=== PATIENT | female | born 2000 | race Caucasian/White ===

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

== ENCOUNTER 2018-09-09 23:58 | Emergency (ER) | payer OTHER ==
--- NOTE | 2018-09-10 01:36 | ER Document Report ---
Addendum entered and electronically signed by POLI STEVENS LCSWA 09/10/18 09:50: Discharge - Discharge Clinical Impression: Suicidal ideation, Bereavement Alcohol intoxication Qualifiers: Complication of substance-induced condition: uncomplicated Qualified Code(s): F10.920 - Alcohol use, unspecified with intoxication, uncomplicated Depression Qualifiers: Depression Type: unspecified Qualified Code(s): F32.9 - Major depressive disorder, single episode, unspecified Condition: Stable Disposition: HOME, SELF-CARE Additional Instructions: You have been evaluated by both medical and behavioral health teams and been deemed appropriate for discharge. You are recommended to follow-up with outpatient mental health services for both grief counseling and DBT; you have been provided a local resource list of area providers including mobile crisis contact information. You have been provided prescriptions for Zyprexa 2.5 mg twice daily, Prozac 20 mg daily and BuSpar 5 mg twice daily; please take as directed. DEPRESSION: Your evaluation reveals that you have mental depression. While symptoms may be vague, they often include disturbance of sleep, fatigue, loss of appetite, and general loss of interest in life. While depression may be a side effect of drugs, or a reaction to a major change in your life, many cases have no known cause. If depression is acute, and related to a major loss in your life, you can expect it to clear completely with time. If you have been depressed a long time, are prone to repeated bouts of depression or low mood, or have been thinking of suicide, get help. Depression can be treated with anti-depressant medication and counselling. Long-term depression will often take a few weeks to clear, even with appropriate medication. Follow-up care is important. FOLLOW-UP CARE: If you have been referred to a physician for follow-up care, call the physicians office for an appointment as you were instructed or within the next two days.~ If you experience worsening or a significant change in your symptoms, notify the physician immediately or return to the Emergency Department at any time for re-evaluation. Referrals: [facility] [Outside] - Follow up as needed Original Note: ED General - General Chief Complaint: ETOH Abuse Stated Complaint: ETOH Time Seen by Provider: 09/10/18 00:04 Notes: Patient is a 18-year-old female with past medical history of bipolar disorder, prior suicide attempts, presents with concerns of increasing depression, suicidal ideation, admits to drinking heavily tonight and then having what she describes as being a possible pseudoseizure of which she has a history. Patient states that she is been lying in bed for most of the past 3 weeks after having a D&C done due to miscarriage of 10-week twins. 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 Patient states that she has had no energy or effort, has no desire to get up out of bed. She states that her l ast suicide attempt was when she was 12 years of age and did require 3-day hospitalization in ICU. She currently denies any acute medical complaints other than being intoxicated. Patient states that she has feel increasingly suicidal, feels isolated, does not typically leave the house or complete many activities of daily living secondary to her depression. TRAVEL OUTSIDE OF THE [place] IN LAST 30 DAYS: No - Related Data Allergies/Adverse Reactions: codeine Allergy (Verified 09/10/18 00:07) escitalopram [From Lexapro] Allergy (Verified 09/10/18 00:07) Past Medical History - General Information source: Patient - Social History Smoking Status: Current Some Day Smoker Frequency of alcohol use: Occasional Drug Abuse: None Lives with: Spouse/Significant other Family History: Reviewed & Not Pertinent Patient has suicidal ideation: No Patient has homicidal ideation: No Renal/ Medical History: Denies: Hx Peritoneal Dialysis Psychiatric Medical History: Reports: Hx Depression Past Surgical History: Reports: Hx Gynecologic Surgery - "double D&C", Hx Oral Surgery Review of Systems - Review of Systems Notes: Constitutional: Negative for fever. HENT: Negative for sore throat. Eyes: Negative for visual changes. Cardiovascular: Negative for chest pain. Respiratory: Negative for shortness of breath. Gastrointestinal: Negative for abdominal pain, vomiting or diarrhea. Genitourinary: Negative for dysuria. Musculoskeletal: Negative for back pain. Skin: Negative for rash. Neurological: Negative for headaches, weakness or numbness. 10 point ROS negative except as marked above and in HPI. Physical Exam - Vital signs Interpretation: Normal Notes: PHYSICAL EXAMINATION: GENERAL: Quite anxious, moderately tearful HEAD: Atraumatic, normocephalic. EYES: Pupils equal round and reactive to light, extraocular movements intact, sclera anicteric, conjunctiva are normal. ENT: nares patent, oropharynx clear without exudates. Moist mucous membranes. NECK: Normal range of motion, supple without lymphadenopathy LUNGS: Breath sounds clear to auscultation bilaterally and equal. No wheezes rales or rhonchi. HEART: Regular rate and rhythm without murmurs ABDOMEN: Soft, nontender, normoactive bowel sounds. No guarding, no rebound. No masses appreciated. EXTREMITIES: Normal range of motion, no pitting or edema. No cyanosis. NEUROLOGICAL: No focal neurological deficits. Moves all extremities spontaneously and on command. PSYCH: Anxious, tearful, mildly intoxicated SKIN: Warm, Dry, normal turgor, no rashes or lesions noted. Course - Re-evaluation Re-evalutation: 09/10/18 01:34 Patient presents after drinking tonight, is becoming increasingly sober during my assessment but does begin to open to me and explained that she has been feeling increasingly suicidal after having a D&C with loss of twins at 10 weeks. Has a history of depression and anxiety, was taken off of her medications during her , was recently restarted on Zoloft but reports this is not helping her. Patient voices self-injurious behaviors, states that she has been lying in bed all day every day for several weeks even on . The patient states that she feels that she has failed in life. She is extremely concerning her presentation for possible elevated suicide risk. She states that she is asking for help and feels like she would not be safe at home. Will undergo psychiatric screening labs. Medical screening exam unremarkable. She will be transitioned to a psychiatric room. - Laboratory Result Diagrams: 09/10/18 01:40 09/10/18 01:40 Laboratory results interpreted by me: 09/10/18 09/10/18 00:35 01:40 Seg Neutrophils % 83.7 H Lymphocytes % 12.0 L Urine Blood MODERATE H - EKG Interpretation by Me Additional EKG results interpreted by me: 09/10/18 02:51 Sinus rhythm, rate 89. No ST elevations or depressions. QTC is 463. Discharge - Discharge Clinical Impression: Suicidal ideation Alcohol intoxication Qualifiers: Complication of substance-induced condition: uncomplicated Qualified Code(s): F10.920 - Alcohol use, unspecified with intoxication, uncomplicated Depression Qualifiers: Depression Type: unspecified Qualified Code(s): F32.9 - Major depressive disorder, single episode, unspecified Condition: Fair
[2018-09-10 01:50] LABS: ABSOLUTE MONOCYTES (AUTO) 0.3 10^3/uL (0.1-1.4); ABSOLUTE NEUT (AUTO) 7.3 10^3/uL (1.7-8.2); BASOPHILS % (AUTO) 0.2 % (0-2); EOSINOPHILS % (AUTO) 0.4 % (0-6); HEMOGLOBIN 13.3 g/dL (12.0-15.5); MEAN CORPUSCULAR HEMOGLOBIN 28.9 pg (27.0-33.4); MEAN CORPUSCULAR HGB CONC 34.1 g/dL (32.0-36.0); MEAN CORPUSCULAR VOLUME 85 fl (80-97); MONOCYTES % (AUTO) 3.7 % (3-13); PLATELET COUNT 256 10^3/uL (150-450); RED BLOOD COUNT 4.61 10^6/uL (3.72-5.28); RED CELL DISTRIBUTION WIDTH 12.2 % (11.5-14.0); SEGMENTED NEUTROPHILS % (AUTO) 83.7 % (42-78); TOTAL CELLS COUNTED % (AUTO) 100 %; WHITE BLOOD COUNT 8.7 10^3/uL (4.0-10.5)
[2018-09-10 02:01] LABS: APPEARANCE,URINE CLEAR; BILIRUBIN,URINE NEGATIVE (NEGATIVE); COLOR,URINE YELLOW; GLUCOSE, URINE NEGATIVE (NEGATIVE); KETONES,URINE NEGATIVE (NEGATIVE); LEUKOCYTE ESTERASE,URINE NEGATIVE (NEGATIVE); NITRITE,URINE NEGATIVE (NEGATIVE); PROTEIN,URINE NEGATIVE (NEGATIVE); URINE SPECIFIC GRAVITY 1.016; UROBILINOGEN,URINE NEGATIVE mg/dL (<2.0)
[2018-09-10 03:13] LABS: ALANINE AMINOTRANSFERASE 22 U/L (9-52); ALBUMIN 4.8 g/dL (3.5-5.0); ALCOHOL 148 mg/dL (NONE DETECTED); ALKALINE PHOSPHATASE 59 U/L (38-126); ANION GAP 13 (5-19); ASPARTATE AMINO TRANSFERASE 20 U/L (14-36); BILIRUBIN,DIRECT 0.2 mg/dL (0.0-0.4); BILIRUBIN,TOTAL 0.4 mg/dL (0.2-1.3); BLOOD UREA NITROGEN 10 mg/dL (7-20); CALCIUM 9.8 mg/dL (8.4-10.2); CARBON DIOXIDE 25 mmol/L (22-30); CHLORIDE 107 mmol/L (98-107); GLUCOSE 103 mg/dL (75-110); POTASSIUM 3.8 mmol/L (3.6-5.0); SODIUM 145.1 mmol/L (137-145); TOTAL PROTEIN 7.9 g/dL (6.3-8.2)
[2018-09-10 03:16] LABS: ACETAMINOPHEN < 10 ug/mL (10-30); SALICYLATE < 1.0 mg/dL (2.0-20.0)
[2018-09-10] MEDS ORDERED: ACETAMINOPHEN 325 MG TABLET PO ONE (03:48)
[2018-09-10 05:20] LABS: URINE AMPHETAMINES SCREEN NEGATIVE; URINE BARBITURATES SCREEN NEGATIVE; URINE BENZODIAZEPINES SCREEN NEGATIVE; URINE COCAINE SCREEN NEGATIVE; URINE MARIJUANA (THC) SCREEN NEGATIVE; URINE METHADONE SCREEN NEGATIVE; URINE PHENCYCLIDINE SCREEN NEGATIVE
--- NOTE | 2018-09-10 09:28 | ER Document Report ---
Doctor's Note Notes: 09/10/18 09:51 Patient seen and evaluated by myself. She presents the emergency department intoxicated with complaints of suicidal ideations. Patient states that she had a D&C with loss of a twin at 10 weeks. She states that she has been feeling depressed ever since. She states that she has been laying in bed every day for several weeks. Labs obtained. Patient was medically cleared. No issues overnight per nursing. Vital signs stable. Patient states that she is feeling better in the room. She denies any current suicidal ideations. Patient significant other is at bedside. A plan was established with behavioral health. Patient will be discharged home on Zyprexa, Prozac, BuSpar. Appropriate foll ow-up has been arranged. Patient instructed that she needs to attend grief counseling. Patient significant other and herself feel comfortable with discharge home. 09/10/18 10:32
[2018-09-10 11:26] VITALS: BP 113/71
--- NOTE | 2018-09-10 12:46 | EKG REPORT ---
SEVERITY:- NORMAL ECG - SINUS RHYTHM : Confirmed by: Darlene Pratt MD 10-Sep-2018 12:44:50
== END 2018-09-10 11:25 | disposition home or self-care (01) ==
LOC: ER 23:58
DX: F10.920 Alcohol use, unspecified with intoxication, uncomplicated (principal); F32.9 Major depressive disorder, single episode, unspecified; R45.851 Suicidal ideations; F17.200 Nicotine dependence, unspecified, uncomplicated; Z63.4 Disappearance and death of family member; Z88.5 Allergy status to narcotic agent; Z88.8 Allergy status to other drugs, medicaments and biological substances
CPT/HCPCS: 36415; 80053; 80307; 81001; 84703; 85025; 93005; 93010; 99284

== ENCOUNTER 2019-05-29 17:10 | Emergency (ER) | payer SELFPAY ==
--- NOTE | 2019-05-29 17:24 | ER Document Report ---
ED Medical Screen (RME) - General Chief Complaint: Flank Pain Stated Complaint: RIGHT SIDE PAIN Time Seen by Provider: 05/29/19 17:18 Mode of Arrival: Wheelchair Information source: Patient Notes: Patient presents emergency department with complaints of severe lower abdominal pain while she was voiding 15 minutes ago. Patient is hysterically crying. Denies fever vomiting diarrhea. Reports it did not hurt before voiding. She is unsure if she is . I have greeted and performed a rapid initial assessment of this patient. A comprehensive ED assessment and evaluation of the patient, analysis of test results and completion of the medical decision making process will be conducted by additional ED providers. Dictation of this chart was performed using voice recognition software; therefore, there may be some unintended grammatical errors. TRAVEL OUTSIDE OF THE [place] IN LAST 30 DAYS: No - Related Data Allergies/Adverse Reactions: codeine Allergy (Verified 05/29/19 17:18) escitalopram [From Lexapro] Allergy (Verified 05/29/19 17:18) Past Medical History Renal/ Medical History: Denies: Hx Peritoneal Dialysis Psychiatric Medical History: Reports: Hx Depression Past Surgical History: Reports: Hx Gynecologic Surgery - "double D&C", Hx Oral Surgery Physical Exam - Vital signs Vitals: Temp Pulse Resp BP Pulse Ox 97.8 F 116 H 32 H 134/86 H 100 05/29/19 17:13 05/29/19 17:13 05/29/19 17:13 05/29/19 17:13 05/29/19 17:13 Course - Vital Signs Vital signs: Temp Pulse Resp BP Pulse Ox 97.8 F 116 H 32 H 134/86 H 100 05/29/19 17:13 05/29/19 17:13 05/29/19 17:13 05/29/19 17:13 05/29/19 17:13
[2019-05-29 18:01] LABS: ABSOLUTE BASOPHILS # (AUTO) 0.1 10^3/uL (0.0-0.2); ABSOLUTE EOSINOPHILS # (AUTO) 0.2 10^3/uL (0.0-0.6); ABSOLUTE LYMPHOCYTES (AUTO) 2.4 10^3/uL (0.5-4.7); ABSOLUTE MONOCYTES (AUTO) 0.9 10^3/uL (0.1-1.4); ABSOLUTE NEUT (AUTO) 8.5 10^3/uL (1.7-8.2); BASOPHILS % (AUTO) 0.5 % (0-2); EOSINOPHILS % (AUTO) 1.5 % (0-6); HEMATOCRIT 39.6 % (36.0-47.0); HEMOGLOBIN 13.5 g/dL (12.0-15.5); LYMPHOCYTES % (AUTO) 20.2 % (13-45); MEAN CORPUSCULAR HEMOGLOBIN 28.4 pg (27.0-33.4); MEAN CORPUSCULAR HGB CONC 34.1 g/dL (32.0-36.0); MEAN CORPUSCULAR VOLUME 83 fl (80-97); MONOCYTES % (AUTO) 7.4 % (3-13); PLATELET COUNT 342 10^3/uL (150-450); RED BLOOD COUNT 4.76 10^6/uL (3.72-5.28); RED CELL DISTRIBUTION WIDTH 13.7 % (11.5-14.0); SEGMENTED NEUTROPHILS % (AUTO) 70.4 % (42-78); TOTAL CELLS COUNTED % (AUTO) 100 %
[2019-05-29] MEDS ORDERED: PHENAZOPYRIDINE HCL 200 MG TABLET PO ONE (18:04)
[2019-05-29 18:17] LABS: ALBUMIN 4.7 g/dL (3.5-5.0); ALKALINE PHOSPHATASE 69 U/L (38-126); ANION GAP 13 (5-19); ASPARTATE AMINO TRANSFERASE 21 U/L (14-36); BILIRUBIN,DIRECT 0.1 mg/dL (0.0-0.4); BILIRUBIN,TOTAL 0.8 mg/dL (0.2-1.3); BLOOD UREA NITROGEN 11 mg/dL (7-20); CALCIUM 10.3 mg/dL (8.4-10.2); CARBON DIOXIDE 24 mmol/L (22-30); CHLORIDE 103 mmol/L (98-107); GLUCOSE 95 mg/dL (75-110); POTASSIUM 3.6 mmol/L (3.6-5.0); TOTAL PROTEIN 7.9 g/dL (6.3-8.2)
[2019-05-29 18:33] LABS: ALCOHOL < 10 mg/dL (NONE DETECTED)
[2019-05-29 18:51] LABS: APPEARANCE,URINE CLOUDY; BILIRUBIN,URINE NEGATIVE (NEGATIVE); COLOR,URINE YELLOW; GLUCOSE, URINE NEGATIVE (NEGATIVE); KETONES,URINE TRACE mg/dL (NEGATIVE); LEUKOCYTE ESTERASE,URINE NEGATIVE (NEGATIVE); NITRITE,URINE NEGATIVE (NEGATIVE); PROTEIN,URINE 30 mg/dL (NEGATIVE); URINE SPECIFIC GRAVITY 1.023
[2019-05-29] MEDS ORDERED: FENTANYL CITRATE INJ/PF 100 MCG/2 ML AMPUL IV ONE ×2 (20:03→21:47)
[2019-05-29] MEDS ORDERED: NORMAL SALINE 1000 ML 1,000 ML IV ONE ×2 (20:03→21:44)
[2019-05-29] MEDS ORDERED: ONDANSETRON HCL INJ/PF 4 MG/2 ML SDV IV ONE (20:03)
[2019-05-29] MEDS ORDERED: KETOROLAC TROMETHAMINE INJ/PF 30 MG/1 ML SDV IV ONE (20:04)
--- NOTE | 2019-05-29 20:08 | ER Document Report ---
ED GI/ - General Chief Complaint: Abdominal Pain Stated Complaint: RIGHT SIDE PAIN Time Seen by Provider: 05/29/19 17:18 Primary Care Provider: [facility] [Provider Group] - Follow up as needed Mode of Arrival: Wheelchair Information source: Patient Notes: Patient states that around 5 PM she was voiding and had a sudden onset of right lower pelvic pain. Patient states pain was severe but has lessened up since it originally started. Patient does report nausea. Patient denies any fever. Patient denies any vaginal bleeding or vaginal discharge. Patient denies any known history of ovarian cyst. TRAVEL OUTSIDE OF THE [place] IN LAST 30 DAYS: No - HPI Patient complains to provider of: Pelvic pain. No: , Vomiting Onset: This evening Timing/Duration: Sudden Quality of pain: Sharp Pain Level: 4 Location: Pelvis Vaginal bleeding (Compared to normal period): None Menstrual period history: denies: Sexual history: Active Associated symptoms: Nausea. denies: Dysuria, Fever, Urinary hesitancy, Urinary frequency, Urinary retention, Urinary urgency, Vaginal discharge, Vomiting Exacerbated by: Movement Relieved by: Denies - Related Data Allergies/Adverse Reactions: amoxicillin Allergy (Verified 05/30/19 18:52) codeine Allergy (Verified 05/29/19 17:18) escitalopram [From Lexapro] Allergy (Verified 05/29/19 17:18) Penicillins Allergy (Verified 05/30/19 18:52) Past Medical History - General Information source: Patient - Social History Smoking Status: Current Every Day Smoker Chew tobacco use (# tins/day): No Frequency of alcohol use: None Drug Abuse: None Occupation: None Lives with: Spouse/Significant other Family History: Reviewed & Not Pertinent Patient has suicidal ideation: No Patient has homicidal ideation: No Renal/ Medical History: Denies: Hx Peritoneal Dialysis Psychiatric Medical History: Reports: Hx Depression Past Surgical History: Reports: Hx Gynecologic Surgery - "double D&C", Hx Oral Surgery Review of Systems - Review of Systems Constitutional: No symptoms reported. denies: Fever, Recent illness EENT: No symptoms reported Cardiovascular: No symptoms reported Respiratory: No symptoms reported. denies: Cough Gastrointestinal: Abdominal pain, Nausea. denies: Vomiting Genitourinary: No symptoms reported. denies: Dysuria, Flank pain Female Genitourinary: No symptoms reported. denies: , Vaginal disch arge, Vaginal bleeding Musculoskeletal: No symptoms reported. denies: Back pain Skin: No symptoms reported Hematologic/Lymphatic: No symptoms reported Neurological/Psychological: No symptoms reported Physical Exam - Vital signs Vitals: Temp Pulse Resp BP Pulse Ox 97.8 F 116 H 32 H 134/86 H 100 05/29/19 17:13 05/29/19 17:13 05/29/19 17:13 05/29/19 17:13 05/29/19 17:13 - General General appearance: Appears well, Alert In distress: None - HEENT Head: Normocephalic, Atraumatic Eyes: Normal Conjunctiva: Normal Nasal: Normal Mouth/Lips: Normal Mucous membranes: Dry Pharynx: Normal Neck: Normal, Supple. No: Lymphadenopathy - Respiratory Respiratory status: No respiratory distress Chest status: Nontender Breath sounds: Normal. No: Rales, Rhonchi, Stridor, Wheezing Chest palpation: Normal - Cardiovascular Rhythm: Regular Heart sounds: S1 appreciated, S2 appreciated Murmur: No - Abdominal Inspection: Normal Distension: No distension Bowel sounds: Normal Tenderness: Tender - Right lower pelvic. No: McBurney's point, Castillo's sign, Guarding Organomegaly: No organomegaly - Back Back: Normal, Nontender. No: CVA tenderness - Extremities General upper extremity: Normal inspection, Normal ROM General lower extremity: Normal inspection, Normal ROM - Neurological Neuro grossly intact: Yes Cognition: Normal [place] Coma Scale Eye Opening: Spontaneous [place] Coma Scale Verbal: Oriented [place] Coma Scale Motor: Obeys Commands [place] Coma Scale Total: 15 - Psychological Associated symptoms: Normal affect, Normal mood - Skin Skin Temperature: Warm Skin Moisture: Dry Skin Color: Normal Course - Re-evaluation Re-evalutation: 05/29/19 21:47 No acute findings noted on ultrasound, will add on CT imaging given patient's persistent right lower pelvic tenderness. 05/30/19 01:28 No acute findings noted on CT scan, no concern for appendicitis at this time. Patient does have a large stool burden noted on images although no evidence for obstruction at this time. Discussed with patient possibility of possible ruptured ovarian cyst as well as constipation leading to some of her abdominal pain symptoms. Patient does states she has a long history of constipation and takes Colace and occasional MiraLAX at home. Patient also given appendicitis precautions. Good return precautions discussed with patient. Patient presents with abdominal pain without signs of peritonitis or other life-threatening or serious etiology. Patient appears stable for discharge and has been instructed to return immediately if the symptoms worsen in any way for reevaluation. - Vital Signs Vital signs: Temp Pulse Resp BP Pulse Ox 97.9 F 89 18 120/75 99 05/30/19 01:33 05/30/19 01:33 05/30/19 01:33 05/30/19 01:33 05/30/19 01:33 - Laboratory Result Diagrams: 05/29/19 17:35 05/29/19 17:35 Laboratory results interpreted by me: 05/29/19 05/29/19 05/29/19 17:35 17:35 18:19 WBC 12.0 H Absolute Neuts (auto) 8.5 H Calcium 10.3 H Urine Protein 30 H Urine Ketones TRACE H Urine Urobilinogen 2.0 H 05/30/19 01:28 Labs- Entire Visit 05/29/19 05/29/19 05/29/19 17:35 17:35 18:19 WBC 12.0 H RBC 4.76 Hgb 13.5 Hct 39.6 MCV 83 MCH 28.4 MCHC 34.1 RDW 13.7 Plt Count 342 Lymph % (Auto) 20.2 [place] % (Auto) 7.4 Eos % (Auto) 1.5 Baso % (Auto) 0.5 Absolute Neuts (auto) 8.5 H Absolute Lymphs (auto) 2.4 Absolute Monos (auto) 0.9 Absolute Eos (auto) 0.2 Absolute Basos (auto) 0.1 Seg Neutrophils % 70.4 Sodium 140.1 Potassium 3.6 Chloride 103 Carbon Dioxide 24 Anion Gap 13 BUN 11 Creatinine 0.66 Est GFR ( Amer) > 60 Est GFR (MDRD) Non-Af > 60 Glucose 95 Calcium 10.3 H Total Bilirubin 0.8 Direct Bilirubin 0.1 Neonat Total Bilirubin Not Reportable Neonat Direct Bilirubin Not Reportable Neonat Indirect Bili Not Reportable AST 21 ALT 18 Alkaline Phosphatase 69 Total Protein 7.9 Albumin 4.7 Beta HCG, Quant < 2.39 Total Beta HCG NEGATIVE Urine Color YELLOW Urine Appearance CLOUDY Urine pH 9.0 Ur Specific [place] 1.023 Urine Protein 30 H Urine Glucose (UA) NEGATIVE Urine Ketones TRACE H Urine Blood NEGATIVE Urine Nitrite NEGATIVE Urine Bilirubin NEGATIVE Urine Urobilinogen 2.0 H Ur Leukocyte Esterase NEGATIVE Urine WBC (Auto) 3 Urine RBC (Auto) 4 Urine Bacteria (Auto) TRACE Squamous Epi Cells Auto 24 Urine Mucus (Auto) MOD Urine Ascorbic Acid NEGATIVE Urine HCG, Qual NEGATIVE Serum Alcohol < 10 - Diagnostic Test Radiology reviewed: Image reviewed, Reports reviewed Discharge - Discharge Clinical Impression: Dehydration Abdominal pain Qualifiers: Abdominal location: unspecified location Qualified Code(s): R10.9 - Unspecified abdominal pain Condition: Stable Disposition: HOME, SELF-CARE Instructions: Abdominal Pain ([facility]), Constipation ([facility]), Dehydration ([facility]), Intravenous (IV) Fluids ([facility]), Observation for Appendicitis ([facility]) Additional Instructions: Return immediately for any new or worsening symptoms Followup with your primary care provider, call tomorrow to make a followup appointment Increase oral fluids and stay well-hydrated Prescriptions: Naproxen [Naprosyn 250 Nmg Tablet] 1 tab PO BID #14 tablet Ondansetron HCl [Zofran 4 mg Tablet] 1 - 2 tab PO Q6 PRN #15 tablet PRN Reason: Referrals: [facility] [Provider Group] - Follow up as needed
--- NOTE | 2019-05-29 21:18 | RADIOLOGY REPORT (SQ) ---
EXAM DESCRIPTION: US PELVIS TRANSVAGINAL COMPLETED DATE/TME: 05/29/2019 20:03 CLINICAL HISTORY: 19 years, Female, RLQ pain COMPARISON: Prior pelvic ultrasound from 09/18/2017 TECHNIQUE: Axial 2-D grayscale images of the pelvis were acquired. Doppler was utilized. LIMITATIONS: None. FINDINGS: Uterus measures 7.6 x 4.9 x 4.3 cm in size. Endometrial stripe thickness is 8 mm. Cervix is closed, measuring 2.8 cm in length. Right ovary measures 4.5 x 2.9 x 3.4 cm in size. Left ovary measures 2.7 x 3.1 x 3.3 cm in size. Both ovaries demonstrate normal echogenicity and normal low resistance arterial waveforms/venous flow. A small amount of free fluid is noted within the posterior cul-de-sac. Active peristalsis is identified within bowel loops about the low pelvis. IMPRESSION: No acute sonographic abnormality within the pelvis. Actively peristalsing bowel located within the low pelvis, nonspecific. copyright 2010 [employer]- All Rights Reserved
[2019-05-30] MEDS ORDERED: FENTANYL CITRATE INJ/PF 100 MCG/2 ML AMPUL IV ONE (00:57)
--- NOTE | 2019-05-30 01:07 | RADIOLOGY REPORT (SQ) ---
CLINICAL HISTORY: RLQ pain. HCG NEG COMPARISON: None. TECHNIQUE: CT ABDOMEN PELVIS WITH IV CONTRAST on 05/30/2019 12:00 AM CDT This exam was performed according to our departmental dose-optimization program, which includes automated exposure control, adjustment of the mA and/or kV according to patient size and/or use of iterative reconstruction technique. FINDINGS: Lower lungs are clear. Abdomen: The liver is normal in appearance. There is no biliary dilatation. Gallbladder is normal in appearance. The pancreas and spleen are normal in appearance. The adrenal glands and kidneys are unremarkable. Abdominal aorta is normal in course and caliber without aneurysm. There is no free air. There is no retroperitoneal adenopathy. Pelvis: There is no bowel obstruction. Urinary bladder is unremarkable. There is trace free pelvic fluid. Appendix is normal. Uterus is normal in size. Skeleton: There are no acute osseous findings. No suspicious bony lesions. IMPRESSION: No acute inflammatory process. No renal or ureteral calculi.
[2019-05-30 01:37] VITALS: BP 120/75
== END 2019-05-30 01:41 | disposition home or self-care (01) ==
LOC: ER 17:10
DX: K59.00 Constipation, unspecified (principal); Z79.899 Other long term (current) drug therapy; E86.0 Dehydration; R10.2 Pelvic and perineal pain; R11.0 Nausea; F17.200 Nicotine dependence, unspecified, uncomplicated; Z88.0 Allergy status to penicillin; Z88.5 Allergy status to narcotic agent; Z88.1 Allergy status to other antibiotic agents
CPT/HCPCS: 96376; 99284; 96361; 96374; 96375; 36415; 80307; 84702; 85025; 81025; 80053; 81001; 76830; 93976; 74177; J3010 ×2; J1885; J3490; J2405; J7030

== ENCOUNTER 2019-05-30 18:15 | Emergency (ER) | payer SELFPAY ==
[2019-05-30 18:31] VITALS: BP 131/83
--- NOTE | 2019-05-30 18:56 | ER Document Report ---
ED Medical Screen (RME) - General Chief Complaint: Fever Stated Complaint: FEVER Time Seen by Provider: 05/30/19 18:52 Mode of Arrival: Ambulatory Information source: Patient Notes: 19-year-old female presents to the emergency department with complaints of low abdominal pain and reports a fever of 100.8 prior to arrival. She has taken Tylenol PTO. Patient was evaluated in the emergency department last night reports that they saw fluid in her pelvic region with an inflamed ovary. Patient still complains of pain. I have greeted and performed a rapid initial assessment of this patient. A comprehensive ED assessment and evaluation of the patient, analysis of test results and completion of the medical decision making process will be conducted by additional ED providers. Dictation of this chart was performed using voice recognition software; therefore, there may be some unintended grammatical errors. TRAVEL OUTSIDE OF THE [place] IN LAST 30 DAYS: No - Related Data Allergies/Adverse Reactions: amoxicillin Allergy (Verified 05/30/19 18:52) codeine Allergy (Verified 05/29/19 17:18) escitalopram [From Lexapro] Allergy (Verified 05/29/19 17:18) Penicillins Allergy (Verified 05/30/19 18:52) Past Medical History Renal/ Medical History: Denies: Hx Peritoneal Dialysis Psychiatric Medical History: Reports: Hx Depression Past Surgical History: Reports: Hx Gynecologic Surgery - "double D&C", Hx Oral Surgery Physical Exam - Vital signs Vitals: Temp Pulse Resp BP Pulse Ox 99.3 F 116 H 18 131/83 H 100 05/30/19 18:30 05/30/19 18:30 05/30/19 18:30 05/30/19 18:30 05/30/19 18:30 Course - Vital Signs Vital signs: Temp Pulse Resp BP Pulse Ox 99.3 F 116 H 18 131/83 H 100 05/30/19 18:30 05/30/19 18:30 05/30/19 18:30 05/30/19 18:30 05/30/19 18:30
[2019-05-30 19:29] LABS: ABSOLUTE EOSINOPHILS # (AUTO) 0.1 10^3/uL (0.0-0.6); ABSOLUTE LYMPHOCYTES (AUTO) 0.7 10^3/uL (0.5-4.7); ABSOLUTE MONOCYTES (AUTO) 0.6 10^3/uL (0.1-1.4); ABSOLUTE NEUT (AUTO) 5.8 10^3/uL (1.7-8.2); BASOPHILS % (AUTO) 0.1 % (0-2); EOSINOPHILS % (AUTO) 1.1 % (0-6); HEMATOCRIT 34.4 % (36.0-47.0); HEMOGLOBIN 11.8 g/dL (12.0-15.5); MEAN CORPUSCULAR HEMOGLOBIN 29.1 pg (27.0-33.4); MEAN CORPUSCULAR HGB CONC 34.4 g/dL (32.0-36.0); MEAN CORPUSCULAR VOLUME 85 fl (80-97); MONOCYTES % (AUTO) 8.7 % (3-13); PLATELET COUNT 241 10^3/uL (150-450); RED BLOOD COUNT 4.06 10^6/uL (3.72-5.28); RED CELL DISTRIBUTION WIDTH 13.4 % (11.5-14.0); SEGMENTED NEUTROPHILS % (AUTO) 80.1 % (42-78); TOTAL CELLS COUNTED % (AUTO) 100 %; WHITE BLOOD COUNT 7.2 10^3/uL (4.0-10.5)
[2019-05-30 19:39] LABS: APPEARANCE,URINE CLOUDY; BILIRUBIN,URINE NEGATIVE (NEGATIVE); COLOR,URINE AMBER; GLUCOSE, URINE NEGATIVE (NEGATIVE); KETONES,URINE NEGATIVE (NEGATIVE); LEUKOCYTE ESTERASE,URINE TRACE (NEGATIVE); NITRITE,URINE POSITIVE (NEGATIVE); PROTEIN,URINE NEGATIVE (NEGATIVE); URINE SPECIFIC GRAVITY 1.025
[2019-05-30 19:52] LABS: ALBUMIN 3.8 g/dL (3.5-5.0); ALKALINE PHOSPHATASE 51 U/L (38-126); ANION GAP 8 (5-19); ASPARTATE AMINO TRANSFERASE 17 U/L (14-36); BILIRUBIN,DIRECT 0.1 mg/dL (0.0-0.4); BILIRUBIN,TOTAL 0.6 mg/dL (0.2-1.3); BLOOD UREA NITROGEN 13 mg/dL (7-20); CALCIUM 9.3 mg/dL (8.4-10.2); CARBON DIOXIDE 26 mmol/L (22-30); CHLORIDE 104 mmol/L (98-107); GLUCOSE 98 mg/dL (75-110); POTASSIUM 4.1 mmol/L (3.6-5.0); TOTAL PROTEIN 6.4 g/dL (6.3-8.2)
--- NOTE | 2019-05-30 23:13 | ER Document Report ---
ED General - General Chief Complaint: Fever Stated Complaint: FEVER Time Seen by Provider: 05/30/19 18:52 Mode of Arrival: Ambulatory TRAVEL OUTSIDE OF THE [place] IN LAST 30 DAYS: No - HPI Notes: 19-year-old female who presents with right lower quadrant pain. Patient presents on return visit because she developed a low-grade temperature today. Was seen yesterday after developing sudden onset right lower quadrant pain. Happened while urinating. Nausea but no vomiting sharp and severe, radiates toward her right lower pelvis. She was seen yesterday and underwent extensive work-up including transvaginal ultrasound as well as CT imaging, both of which were unremarkable, CT which I have personally reviewed and read the report shows no evidence of appendicitis. Patient now has continued pain, I think she felt febrile at home and is come to be reevaluated. Some dysuria. Moderate intensity, nonradiating. No other modifying factors, no other associated symptoms, no other provocative or palliative factors. She denies any vaginal bleeding, no vaginal discharge. - Related Data Allergies/Adverse Reactions: amoxicillin Allergy (Verified 05/30/19 18:52) codeine Allergy (Verified 05/29/19 17:18) escitalopram [From Lexapro] Allergy (Verified 05/29/19 17:18) Penicillins Allergy (Verified 05/30/19 18:52) Past Medical History - General Information source: Patient - Social History Smoking Status: Current Every Day Smoker Family History: Reviewed & Not Pertinent Patient has suicidal ideation: No Patient has homicidal ideation: No Renal/ Medical History: Denies: Hx Peritoneal Dialysis Psychiatric Medical History: Reports: Hx Depression Past Surgical History: Reports: Hx Gynecologic Surgery - "double D&C", Hx Oral Surgery Review of Systems - Review of Systems Notes: Review of systems as in the history of present illness, otherwise negative x 10 systems. Physical Exam - Vital signs Vitals: Temp Pulse Resp BP Pulse Ox 99.3 F 116 H 18 131/83 H 100 05/30/19 18:30 05/30/19 18:30 05/30/19 18:30 05/30/19 18:30 05/30/19 18:30 - Notes Notes: General: Well developed . HEENT: Normocephalic, atraumatic. Pupils equal round reactive to light. No JVD. Chest: No trauma. Respiratory: Good air exchange, normal excursion. Cardiac: Regular rhythm. No murmurs or gallops. Abdomen: Soft, benign. Mild right lower quadrant tenderness, right lower pelvic tenderness. No guarding, rigidity or rebound. Back: No asymmetry or gross abnormality. Motor: Grossly normal power and tone. Neurologic: Alert, nonfocal. Cranial nerves II-12 are intact. Sensation intact. Vascular: Well perfused. Normal peripheral pulses. Skin: No petechiae or purpura. Course - Re-evaluation Re-evalutation: 05/30/19 23:13 Patient was evaluated by the [facility] provider prior to my evaluation. Studies / interventions have been ordered by this provider and may still be pending. Studies and labs reviewed from yesterday, grossly unremarkable. Repeat labs done today showed no significant leukocytosis, urine shows some equivocal evidence of infection, hematuria. Remainder unremarkable. This time we will proceed with pelvic examination as this does not appear to have been done, would consider underlying pelvic inflammatory disease. Will perform serial exams, recheck. 05/31/19 00:34 I went to reevaluate the patient but she is nowhere to be found. Pelvic examinations have been performed. She is left without completing service. - Vital Signs Vital signs: Temp Pulse Resp BP Pulse Ox 99.3 F 116 H 18 131/83 H 100 05/30/19 18:30 05/30/19 18:30 05/30/19 18:30 05/30/19 18:30 05/30/19 18:30 - Laboratory Result Diagrams: 05/30/19 19:12 05/30/19 19:12 Laboratory results interpreted by me: 05/30/19 05/30/19 19:12 19:12 Hgb 11.8 L Hct 34.4 L Lymph % (Auto) 10.0 L Seg Neutrophils % 80.1 H Urine Blood SMALL H Urine Nitrite POSITIVE H Urine Urobilinogen 4.0 H Ur Leukocyte Esterase TRACE H Discharge - Discharge Clinical Impression: Abdominal pain Qualifiers: Abdominal location: unspecified location Qualified Code(s): R10.9 - Unspecified abdominal pain Condition: Stable Disposition: ELOPED
[2019-05-30] MEDS ORDERED: PROCHLORPERAZINE EDISYLATE INJ 10 MG/2 ML VIAL IM ONE (23:14)
[2019-05-30] MEDS ORDERED: KETOROLAC TROMETHAMINE 60 MG/2 ML SDV IM ONE (23:14)
== END 2019-05-30 23:20 | disposition left against medical advice (07) ==
LOC: ER 18:15
DX: R10.9 Unspecified abdominal pain (principal); R50.9 Fever, unspecified; R10.31 Right lower quadrant pain; R11.0 Nausea; R10.2 Pelvic and perineal pain; R30.0 Dysuria; F17.200 Nicotine dependence, unspecified, uncomplicated
CPT/HCPCS: 36415; 80053; 81001; 85025; 87040; 99281